=== PATIENT | female | born 1975 | race African-American/Black ===

== ENCOUNTER 2017-11-29 05:48 | Emergency (ER) | payer BC ==
[~2017-11-29] VITALS: Ht 152.4 cm; Wt 80.5 kg
[~2017-11-29 05:48] MED LIST: DEPO-PROVER150 MG/ML IM; HYDROCODON-ACE1 EAC7 PO; IBUPROFEN800 MG PO; LISINOPRIL-HCT1 EAC3; LISINOPRIL-HCT1 EACH PO; MEDROXYPRO150 MG/1 M IM; MOTRIN IB200 MG PO; MOTRIN800 MG PO; PEN-VEE K,VEET500 MG PO; PRENATAL TABLE1 EAC3 PO; PROCARDIA XL30 MG PO; PROVERA,CYCRIN10 MG PO
[2017-11-29] MEDS ORDERED: MOTRIN800 MG PO (07:17)
[2017-11-29] MEDS ORDERED: FLEXERIL10 MG PO (07:17)
[2017-11-29 07:27] VITALS: BP 135/95
== END 2017-11-29 07:30 | disposition home or self-care (01) ==
LOC: EME 05:48
DX: S16.1XXA Strain of muscle, fascia and tendon at neck level, initial encounter (principal); X58.XXXA Exposure to other specified factors, initial encounter; I10 Essential (primary) hypertension; E78.5 Hyperlipidemia, unspecified
CPT/HCPCS: 72040